=== PATIENT | male | born 1955 | race Caucasian/White ===

== ENCOUNTER 2025-03-26 08:11 | Observation (INO) ==
--- NOTE | 2025-03-03 11:24 | PAT Medication Instructions ---
Medication Instructions Date of Service March 03, 2025 Home Medications amlodipine 10 mg tablet 10 mg PO QAM aspirin 81 mg tablet,delayed release 81 mg PO QPM carvedilol 3.125 mg tablet 3.125 mg PO BID coenzyme Q10 100 mg capsule (Co Q-10) 100 mg PO DAILY empagliflozin 10 mg tablet (Jardiance) 10 mg PO QAM fenofibrate nanocrystallized 145 mg tablet 145 mg PO QAM metformin 1,000 mg tablet 1,000 mg PO BID omega 5-adu-hjl-fish oil 1,000 mg (120 mg-180 mg) capsule (Fish Oil) 1 cap PO QPM ramipril 10 mg capsule 10 mg PO BID rosuvastatin 20 mg tablet 20 mg PO HS tamsulosin 0.4 mg capsule (Flomax) 0.4 mg PO QAM vitamin B12 1,000 mcg-folic acid 400 mcg sublingual tablet 1 tab sublingual D AILY STOP 3 days before surgery empagliflozin 10 mg tablet (Jardiance) 10 mg PO QAM ASK your prescriber and surgeon aspirin 81 mg tablet,delayed release 81 mg PO QPM STOP taking 2 weeks before surgery (or as soon as possible if surgery is within 2 weeks) coenzyme Q10 100 mg capsule (Co Q-10) 100 mg PO DAILY omega 7-pht-hmo-fish oil 1,000 mg (120 mg-180 mg) capsule (Fish Oil) 1 cap PO QPM STOP taking 48 hours before surgery fenofibrate nanocrystallized 145 mg tablet 145 mg PO QAM DO NOT take the morning of surgery metformin 1,000 mg tablet 1,000 mg PO BID ramipril 10 mg capsule 10 mg PO BID vitamin B12 1,000 mcg-folic acid 400 mcg sublingual tablet 1 tab sublingual DAILY Take morning of surgery With a small sip of water, OTHERWISE NOTHING TO EAT OR DRINK AFTER MIDNIGHT: amlodipine 10 mg tablet 10 mg PO QAM carvedilol 3.125 mg tablet 3.125 mg PO BID tamsulosin 0.4 mg capsule (Flomax) 0.4 mg PO QAM Take evening before surgery carvedilol 3.125 mg tablet 3.125 mg PO BID metformin 1,000 mg tablet 1,000 mg PO BID ramipril 10 mg capsule 10 mg PO BID rosuvastatin 20 mg tablet 20 mg PO HS Other Notes If you have any questions please call us at [phone] or [phone] or [phone] or [phone]
--- NOTE | 2025-03-06 13:23 | Anesthesiology Consultation ---
Date of Service March 06, 2025 Assessment & Plan (1) Encounter for pre-operative examination: Plan - check BSG am DOS. - patient reports PCP clearance 03/22/25, Dr. Earnest Moore. - Outpatient joint assessment: Patient is currently scheduled for inpatient pathway. If re-evaluated and patient/surgeon requests outpatient pathway, patient is not ideal candidate for outpatient joint program. Chart Review Chart Review: Pending: Refer to Additional Notes / Consult section and Patient seen in Pre Admission Testing Teaching & Discussion Pre-Anesthesia Teaching/Discussion Notes: Instructed NPO after midnight before surgery, except medications with 15 cc of water. Medication instructions provided according to the PAT guidelines. History Surgery Operation Date: 03/26/25 07:15 Proposed Procedures p Right Reverse Total Shoulder Arthroplasty - Wilbur Hedrick MD Height/Weight Height: 5 ft 6 in Weight: 88.8 kg Allergies Allergy/AdvReac Type Severity Reaction Status Date / Time amoxicillin Allergy Mild Hives Verified 02/26/25 13:08 Medications Home Medications Medication Instructions Recorded Confirmed Last Taken amlodipine 10 mg tablet 10 mg PO QAM 02/26/25 02/26/25 Unknown aspirin 81 mg tablet,delayed 81 mg PO QPM 02/26/25 02/26/25 Unknown release carvedilol 3.125 mg tablet 3.125 mg PO BID 02/26/25 02/26/25 Unknown coenzyme Q10 100 mg capsule (Co 100 mg PO DAILY 02/26/25 02/26/25 Unknown Q-10) empagliflozin 10 mg tablet 10 mg PO QAM 02/26/25 02/26/25 Unknown (Jardiance) fenofibrate nanocrystallized 145 145 mg PO QAM 02/26/25 02/26/25 Unknown mg tablet metformin 1,000 mg tablet 1,000 mg PO BID 02/26/25 02/26/25 Unknown omega 5-lhc-jsp-fish oil 1,000 mg 1 cap PO QPM 02/26/25 02/26/25 Unknown (120 mg-180 mg) capsule (Fish Oil) ramipril 10 mg capsule 10 mg PO BID 02/26/25 02/26/25 Unknown rosuvastatin 20 mg tablet 20 mg PO HS 02/26/25 02/26/25 Unknown tamsulosin 0.4 mg capsule (Flomax) 0.4 mg PO QAM 02/26/25 02/26/25 Unknown vitamin B12 1,000 mcg-folic acid 1 tab sublingual DAILY 02/26/25 02/26/25 Unknown 400 mcg sublingual tablet Past Medical History Medical History (Updated 03/06/25 @ 13:34 by Angela Doan PA-C) BPH (benign prostatic hyperplasia) CAD (coronary artery disease) s/p CABG x 3 07/2008 Diabetes mellitus NIDDM HLD (hyperlipidemia) HTN (hypertension) controlled, stable per pt Hx of colonic polyps Hx of myocardial infarction (05/2009) had CABGx 3- 07/2008- no longer sees cardio Osteoarthritis Seasonal allergies Snores never had sleep study Patient denies h/o stroke, seizures, heart failure, blood clots/DVTs or blood transfusions. Exercise / Class Metabolic Activity II 4-5 Yardwork/Stairs/Walk up hill (denies chest discomfort or shortness of breath with one flight of stairs) Past Surgical History Surgical History History of coronary artery bypass graft x 3 (07/2009) [place] History of lumbar surgery (1984) herniated disc- Hx of cardiac catheterization (05/2009) [place]- had cabg x 3- 07/2008- no longer sees cardio Hx of colonoscopy with polypectomy [facility] Past Anesthesia History No Hx of Anesthesia Complications and No Family Hx of Anesthesia Complications History of PONV No Hx of PONV and No Hx of Motion Sickness Social History Smoking Status: Never smoker Do You Dip or Chew Tobacco: No Hx Alcohol Use: Yes Alcohol type: beer alcohol intake frequency: holidays/special occasions only Hx Substance Use: No substance use type: does not use Review of Systems Patient denies chest pain, shortness of breath, dyspnea on exertion, reflux, fever, chills, cough, wheezing, or palpitations. Physical Exam Vital Signs Vitals BP 125/78 P 56 TEMP 97.8 SP02 96% on RA RESP 18 Physical Patient resting comfortably in chair in no acute distress, alert and oriented, responding appropriately throughout visit Full cervical extension range of motion without pain TMD 3.5 finger breadths Mallampati Score 2 Dentition: intact, denies chipped or loose teeth, caps/crowns, implants or bridges Lungs: normal respiratory effort. Good air movement, clear throughout to auscultation, no adventitious breath sounds Cardiac: bradycardic regular rhythm, no murmurs noted Carotid arteries: negative bruit bilat Lab Results Anesthesia Preop Results Results Anesthesia Widget: WBC 4.65 K/ul (4.8-10.8) L 03/06/25 Hgb 13.4 g/dl (14.0-18.0) L 03/06/25 Hct 39.6 % (42.0-52.0) L 03/06/25 Plt 237 K/uL (130-400) 03/06/25 Na 140 mmol/L (136-145) 03/06/25 K 3.8 mmol/L (3.5-5.1) 03/06/25 Cl 106 mmol/L (98-107) 03/06/25 CO2 27 mmol/L (21-32) 03/06/25 BUN 18 mg/dl (6-23) 03/06/25 Creat 0.95 mg/dl (0.6-1.4) 03/06/25 Glucose Level 102 mg/dl (70-99(Fasting)) H 03/06/25 PT 10.9 Seconds (9.0-12.0) 03/06/25 PTT 34 Seconds (21-31) H 03/06/25 INR 1.0 (0.9-1.1) 03/06/25 HA1c 7.1 % (4.5-5.6) H 03/06/25 Urine Color Yellow 03/06/25 Urine Appearance Clear (Clear) 03/06/25 Urine pH 6.5 (4.5-7.5) 03/06/25 Urine Specific [place] 1.013 (1.000-1.030) 03/06/25 Urine Protein Negative (Negative) 03/06/25 Urine Glucose (UA) 3+ (Negative) H 03/06/25 Urine Ketones Negative (Negative) 03/06/25 Urine Blood Negative (Negative) 03/06/25 Urine Nitrite Negative (Negative) 03/06/25 Urine Bilirubin Negative (Negative) 03/06/25 Urine Urobilinogen Negative (Negative) 03/06/25 Urine Leukocyte Esterase Negative (Negative) 03/06/25 Blood Type O Positive 03/06/25 Antibody Screen NEGATIVE 03/06/25 Testing Electrocardiogram Date: 03/06/25 Sinus bradycardia, rate 56 bpm Chest X-Ray Date: 03/06/25 Cardiomegaly without acute process.
--- NOTE | 2025-03-25 19:55 | History & Physical Report ---
Date of Service March 25, 2025 Assessment & Plan (1) Traumatic complete tear of rotator cuff: Plan: Options of repair versus replacement were discussed at length and looking at risks and benefits of both procedures and patient at his age felt the best option would be to proceed with reverse shoulder replacement and biceps tenodesis of the right shoulder. Risks including potential difficulty with internal rotation behind the back, infection loosening or fracture or typical nerve or vessel injury discussed and patient wants to proceed with surgery. Encounter type: subsequent encounter Laterality: right Qualified Code(s): S46.011D - Strain of muscle(s) and tendon(s) of the rotator cuff of right shoulder, subsequent encounter (2) Biceps tendinopathy of right upper extremity: (3) Osteoarthritis of right acromioclavicular joint: (4) Tendinopathy of right rotator cuff: History of Present Illness Chief Complaint: Chronic right shoulder pain weakness Primary Care Provider: Earnest Moore MD 69-year-old male with right shoulder pain with traumatic complete tear of his right rotator cuff. Patient has large retracted rotator cuff tear with surrounding tendinopathy. Patient also has biceps tendinopathy. Patient denies headaches, sweats, fevers, chills, double vision, blurred vision, cough, sore throat, dysphagia, chest pain, sob, wheezing, n/v/d/c, numbness, tingling, fatigue, urinary symptoms, mood disorders. ROS positive for cardiac issues in the past hypertension high cholesterol diabetes obesity. Allergies Allergy/AdvReac Type Severity Reaction Status Date / Time amoxicillin Allergy Mild Hives Verified 02/26/25 13:08 Home Medications Medication Instructions Recorded Confirmed Type amlodipine 10 mg tablet 10 mg PO QAM 02/26/25 02/26/25 History aspirin 81 mg tablet,delayed 81 mg PO QPM 02/26/25 02/26/25 History release carvedilol 3.125 mg tablet 3.125 mg PO BID 02/26/25 02/26/25 History coenzyme Q10 100 mg capsule (Co 100 mg PO DAILY 02/26/25 02/26/25 History Q-10) empagliflozin 10 mg tablet 10 mg PO QAM 02/26/25 02/26/25 History (Jardiance) fenofibrate nanocrystallized 145 145 mg PO QAM 02/26/25 02/26/25 History mg tablet metformin 1,000 mg tablet 1,000 mg PO BID 02/26/25 02/26/25 History omega 1-qid-gki-fish oil 1,000 mg 1 cap PO QPM 02/26/25 02/26/25 History (120 mg-180 mg) capsule (Fish Oil) ramipril 10 mg capsule 10 mg PO BID 02/26/25 02/26/25 History rosuvastatin 20 mg tablet 20 mg PO HS 02/26/25 02/26/25 History tamsulosin 0.4 mg capsule (Flomax) 0.4 mg PO QAM 02/26/25 02/26/25 History vitamin B12 1,000 mcg-folic acid 1 tab sublingual DAILY 02/26/25 02/26/25 History 400 mcg sublingual tablet Past Med/Surg History Problem List (Updated 03/25/25 @ 19:52 by Wilbur Hedrick MD) Tendinopathy of right rotator cuff Osteoarthritis of right acromioclavicular joint Biceps tendinopathy of right upper extremity Traumatic complete tear of rotator cuff Encounter for pre-operative examination Medical History CAD (coronary artery disease) s/p CABG x 3 07/2008 Osteoarthritis Hx of myocardial infarction (05/2009) had CABGx 3- 07/2008- no longer sees cardio Seasonal allergies Snores never had sleep study Hx of colonic polyps Diabetes mellitus NIDDM BPH (benign prostatic hyperplasia) HTN (hypertension) controlled, stable per pt HLD (hyperlipidemia) Surgical History Hx of colonoscopy with polypectomy [facility] Hx of cardiac catheterization (05/2009) [place]- had cabg x 3- 07/2008- no longer sees cardio History of coronary artery bypass graft x 3 (07/2009) [place] History of lumbar surgery (1984) herniated disc- Social History Smoking Status: Never smoker Second Hand Exposure: No; Do You Dip or Chew Tobacco: No; Tobacco Cessation Education Requested by Patient: No Hx Alcohol Use: Yes Alcohol type: beer Hx Substance Use: No Preferred Language: Omani Communication Ability: Effective Prosthetic Dentist Required: No Beliefs That Will Affect Care: None Current Living Situation: Spouse Other Information That Helps Us Care for You: No Feels Safe at Home: Yes Safety Concerns: Feels Safe At This Time Assistive Devices: Glasses Review of Systems All systems reviewed & are unremarkable except as noted in HPI & below Physical Exam Constitutional: WD/WN, vitals as above Respiratory: normal respiratory effort; no respiratory distress Cardiovascular: Rate/Rhythm: regular rate and regular rhythm Musculoskeletal: Right shoulder with subacromial crepitation tenderness anterolateral acromion greater than AC joint positive Montrose's test speeds test Jackson test cross- body Neer test. Pain in impingement arc pain during internal rotation some limitation range of motion with 160 degrees flexion and abduction and internal rotation to L1 with external rotation 85 degrees and internal rotation 65 degrees. Strength is decreased with resisted strength testing and neurovascular exam is normal. Skin: no rashes, warm and dry Neurologic: normal touch/pain/proprioception Psychiatric: A+Ox3, euthymic affect Results & Data Laboratory Results MRI demonstrates very large retracted rotator cuff tear back to the level of the glenoid and a very short segment of tendon for any repair and surrounding tendinopathy with biceps tendinopathy. Teres minor atrophy. Arthritis AC joint but not bony edema so likely not pain generator. Type II acromion with chronic impingement.
[~2025-03-26 08:11] MED LIST: BUPIVACAINE 0.5 % 5 MG/1 ML PF 10ML VIAL ONE; DEXAMETHASONE SOD INJ 4 MG/ML VIAL ONE; GLYCOPYRROLATE 0.2 MG/ML VIAL ONE; LIDOCAINE 2% 2 ML VIAL/AMP(20MG/ML) INFIL ONE; MIDAZOLAM HCL 1 MG/ML 2ML VIAL ONE; ONDANSETRON INJ 2 MG/ML 2 ML VIAL ONE; PROPOFOL IV EMULSION 10 MG/ML 20 ML VIAL IV ONE; ROCURONIUM BROMIDE 10 MG/ML 5 ML VIAL IV ONE; SUGAMMADEX SODIUM 200 MG/2 ML VIAL IV ONE
[2025-03-26] MEDS: LR 60ML/HR IV SCH (08:53)
[2025-03-26] MEDS: VANCOMYCIN HCL 1,250 MG in SODIUM CHLORIDE 0.9% 250 ML IV SCH ×2 (09:05→23:03)
[2025-03-26] MEDS: LR 15ML/HR IV SCH (09:06)
[2025-03-26] MEDS: FAMOTIDINE 20 MG TAB PO SCH (09:13)
[2025-03-26] MEDS: ACETAMINOPHEN 500 MG TAB PO SCH ×2 (09:13→17:07)
[2025-03-26] MEDS: METOCLOPRAMIDE HCL 10 MG TABLET PO SCH (09:13)
[2025-03-26] MEDS: GABAPENTIN 300 MG CAP PO SCH (09:13)
[2025-03-26] MEDS: CeleBREX 200 MG CAP PO SCH (09:13)
[2025-03-26] MEDS ORDERED: HYDROmorphone INJ 1 MG/ML SYRINGE IV PRN (09:17)
[2025-03-26] MEDS ORDERED: ONDANSETRON INJ 2 MG/ML 2 ML VIAL IV PRN ×2 (09:17→15:53)
[2025-03-26] MEDS ORDERED: ATROPINE SULFATE 0.1 MG/ML 10ML SYR IV PRN (09:17)
--- NOTE | 2025-03-26 10:40 | History & Physical Bridge Note ---
Date of Service March 26, 2025 History & Physical Bridge Note I have examined the patient, reviewed the History & Physical and in the interval since the performance of the History & Physical I have noted the following changes of clinical significance: no changes noted
[2025-03-26] MEDS: TRANEXAMIC ACID 1,000 MG **IV Pre-op IV SCH (10:52)
--- NOTE | 2025-03-26 14:14 | Post Operative Brief Note ---
Immediate Post Op Note Date of Surgery March 26, 2025 Pre & Post Diagnosis Operation Date: 03/26/25 10:15 Pre-Op Diagnosis: Right Shoulder Rotator Cuff Tear and rotator cuff and biceps tendinopathy Post-Op Diagnosis: Right Shoulder Rotator Cuff Tear and rotator cuff and biceps tendinopathy I identified the patient and participated in the time-out.: Yes Procedure Operation Date: 03/26/25 10:15 Actual Procedures p Right Reverse Total Shoulder Arthroplasty(Right), biceps tenodesis- Wilbur Hedrick MD Surgeon Wilbur Hedrick MD Street Engineer None Estimated Blood Loss 200 Findings Consistent with Post-Op Diagnosis Specimens Humeral head cut Drains Hemovac Drain Anesthesia Type General Regional Complications none Disposition Disposition: Recovery Room Overlapping Procedure I was immediately available: during the entire case.
--- NOTE | 2025-03-26 14:54 | XRay Report ---
XR shoulder RT min 2V routine CLINICAL HISTORY: Post shoulder surgery COMPARISON: None FINDINGS: Right shoulder prosthesis shows no hardware complication. Postoperative drain is present. Skin cassandra are present. There is expected soft tissue gas. IMPRESSION: Unremarkable postoperative exam. ACT 112: Negative or not required by law. Electronically signed by: Claude Albarado M.D. 03/26/2025 2:53 PM
--- NOTE | 2025-03-26 15:19 | Anesthesiology Progress Note ---
Date of Service March 26, 2025 Anesthesia Post Procedure Vital Signs Vital Signs: Temp Pulse Pulse Resp BP Pulse Ox O2 Del Method 03/26/25 15:05 71 22 122/67 96 Nasal Cannula 03/26/25 14:50 75 18 120/66 96 Nasal Cannula 03/26/25 14:35 36.4 C L 72 16 121/68 98 Room Air 03/26/25 14:25 72 19 131/72 96 Oxymask 03/26/25 14:15 71 23 125/67 98 Oxymask 03/26/25 14:05 72 24 124/66 98 Oxymask 03/26/25 13:55 35.5 C L 68 13 119/62 96 Oxymask 03/26/25 08:36 36.8 C 64 20 132/76 96 Room Air O2 Flow Rate 03/26/25 15:05 2 03/26/25 14:50 2 03/26/25 14:35 0 03/26/25 14:25 4 03/26/25 14:15 6 03/26/25 14:05 6 03/26/25 13:55 8 03/26/25 08:36 Pain Intensity Right Shoulder: Pain Intensity: 1 Transfer of Care Handoff Completed per policy Notes Mental Status: alert / awake / arousable and participated in evaluation Patient Amnestic to Procedure: Yes Nausea / Vomiting: adequately controlled Pain: adequately controlled Airway Patency, RR, SpO2: stable & adequate BP & HR: stable & adequate Hydration State: stable & adequate Anesthetic Complications: no major complications apparent and Pt Satisfied with anesthetic care
[2025-03-26] MEDS ORDERED: diphenhydrAMINE Capsule 25 MG CAP PO PRN (15:53)
[2025-03-26] MEDS ORDERED: MAGNESIUM HYDROXIDE SUSP 30 ML UDC PO PRN (15:53)
[2025-03-26] MEDS ORDERED: VANCOMYCIN CONSULT ACTIVE PRN (15:53)
[2025-03-26] MEDS ORDERED: METOCLOPRAMIDE HCL INJ 5 MG/ML 2 ML VIAL IV PRN (15:53)
[2025-03-26] MEDS ORDERED: NALOXONE HCL 0.4 MG/1 ML VIAL/CARP IV PRN (15:53)
[2025-03-26] MEDS: BUPIVACAINE LIPOSOME 1.3% 133 MG/10 ML VIAL ONE (16:37)
[2025-03-26] MEDS: General Order Problem(s) SCH (16:37)
[2025-03-26] MEDS: SODIUM CHLORIDE 0.9% 1,000 ML IV SCH (17:06)
[2025-03-26] MEDS: KETOROLAC TROMETHAMINE 15 MG/ML VIAL IV SCH (17:08)
[2025-03-26 17:16] LABS: Hematocrit (blood only) 40.9 % (42.0-52.0); Hemoglobin 13.7 g/dl (14.0-18.0); Mean Corpuscular Hemoglobin 29.8 pg (25.0-34.0); Mean Corpuscular Volume 88.9 fL (80.0-100.0); Platelet Count 212 K/uL (130-400); RDW Standard Deviation 44.0 fL (36.4-46.3); Red Blood Count 4.60 M/uL (4.70-6.10); White Blood Count 11.87 K/ul (4.8-10.8)
[2025-03-26 17:32] LABS: Anion Gap 10.0 (3-11); Blood Urea Nitrogen 15.0 mg/dl (6-23); Calcium 9.1 mg/dl (8.6-10.3); Carbon Dioxide 23.0 mmol/L (21-32); Chloride 106.0 mmol/L (98-107); Creatinine Clr Calc Pharmacy 94.7 ml/min; Glucose 190.0 mg/dl (70-99(Fasting)); Potassium 3.6 mmol/L (3.5-5.1); Sodium 139.0 mmol/L (136-145)
[2025-03-26 17:53] LABS: Immature Granulocytes # (auto) 0.05 K/uL (0.01-0.20); Immature Granulocytes % (auto) 0.4 %
--- NOTE | 2025-03-26 18:04 | Operative Report ---
Post Operative Report Pre & Post Diagnosis Operation Date: 03/26/25 10:15 Pre-Op Diagnosis: Right Shoulder chronic rotator Cuff Tear and Tendinopathy rotator cuff and biceps tendon Post-Op Diagnosis: Right Shoulder chronic rotator Cuff Tear and Tendinopathy rotator cuff and biceps tendon I identified the patient and participated in the time-out.: Yes Procedure Operation Date: 03/26/25 10:15 Actual Procedures p Right Reverse Total Shoulder Arthroplasty(Right), biceps tenodesis- Wilbur Hedrick MD Surgeon Wilbur Hedrick MD Visitor Use Assistant None Estimated Blood Loss 200 Findings Consistent with Post-Op Diagnosis Specimens Humeral head Drains 2 Hemovac Anesthesia Type General Regional Complications none Disposition Disposition: Recovery Room Indications 69-year-old male with posttraumatic large supraspinatus rotator cuff tear with marked retraction and tendinopathy and tearing extending into the infraspinatus and subscapularis. Also noted is biceps tendinopathy tenosynovitis. Description of Procedure The patient was taken to the operating room and anesthetized under regional block and general anesthetic. The patient was positioned on the operating table in a 30 beach chair position with a towel roll under the medial border of the right scapula. The arm was draped free to be able to manipulate the shoulder as needed. The right upper extremity was prepped and draped in usual sterile fashion. Exam demonstrated some subacromial crepitation with full passive range of motion and no atrophy. An anterior deltopectoral approach was performed. A longitudinal incision was made in the deltopectoral interval. The skin was incised sharply. Subcutaneous flaps were elevated off the fascia. The cephalic vein was dissected out and retracted lateral with the deltoid. The clavipectoral fascia was divided at the lateral margin of the conjoined tendon and extended up to the CA ligament. The following findings were noted the subscapularis was intact. There was a large supraspinatus tear with retraction back to the glenoid. There was interstitial tearing of the infraspinatus with splitting between the undersurface and superior aspect of the infraspinatus with chronic undersurface tearing. The upper centimeter of the pectoralis was released for inferior exposure. A self-retaining retractor was placed. The biceps tendon findings demonstrated intact biceps tendon but some chronic tenosynovitis coming out of the joint down along the biceps tendon sheath. A tenosynovectomy was performed. the biceps ten don was tenodesed to the pectoralis tendon with #2 FiberWire using [id number]-[id number]-spboo/whipstitch type technique. The proximal biceps was resected. The subscapular muscle fibers were split longitudinally at the level of the circumflex vessels. The circumflex vessels were identified and tied off with silk ties and divided laterally. A Kitner elevator was used to free up the inferior fibers of the subscapularis off of the capsule. The axillary nerve was identified with a tug test and protected with a blunt Kellie retractor between the nerve and the capsule. The subscapularis tendon was then taken down off of the lesser tuberosity subperiosteally, a Vicryl traction suture was placed and a subperiosteal dissection was performed along the neck of the humerus as the arm was gradually externally rotated exposing the humeral head. The humeral head findings demonstrated intact articular surface with minimal arthritic changes. A Aguilar elevator was used to assist in releasing the capsule of the neck of the humerus. The capsule was divided with Maki scissors down to the glenoid released off the anterior glenoid and the rotator interval was released to meet the capsular release and a 360 release of the subscapularis was accomplished. A Fukuda retractor was placed into the joint retracting the humeral head posterior. Glenoid findings demonstrated intact articular surface and labrum. The labrum and biceps tendon was resected. an anterior-inferior and posterior inferior capsular release were performed with electrocautery and a Aguilar elevator on bone with the axillary nerve protected inferiorly by the retractor. Attention was then taken to the humeral preparation. The cutting guide was placed into the humeral head. It was positioned at 20 of retroversion. Oscillating saw was used to resect the humeral head giving the cut above the level of the posterior rotator cuff insertion site. The humerus was then prepared for the stem. I used the ascend flex stem from [employer]. The sizing broaches were used followed by trial broaches up to a size 4B long which had the appropriate fit and fill. The appropriate sized cut protector was placed. The humerus was then retracted posterior to the glenoid. The glenoid was sized for a 25 mm baseplate. The guide for the baseplate was positioned in a 10 inferior tilt and the central drill hole was made. The reamer for the 25 baseplate was used. The central drill was widened for the peg. The aequalis hydroxyapatite coated 25 mm standard post baseplate was impacted into position. The base plate was transfixed with superior and inferior locking screws and anterior and posterior compression screws with stable fixation. The fan reamer was used for the 36 millimeter glenoid sphere. After irrigation the 36 mm +2 glenoid sphere was impacted onto the baseplate and the security screw was tightened. Attention was taken back to the humerus. The cut protector was removed and the +0 high offset humeral tray trial was assembled to the trial stem rotated appropriately to get bony coverage and then screwed in position. A trial reduction was performed. A +6/36 reversed flex trial insert demonstrated good stability and no shuck. The trials were removed. 3 drill holes are made into the harder bone in the bicipital groove area and 3 #5 FiberWire sutures were placed transosseously. The canal was irrigated with pulsatile lavage saline solution. The final component was assembled. The final component was 4B long ascend flex stem assembled 2+0 high offset tray with a 36 mm / +6 mm flex reversed polyethylene insert. This was then impacted into the humerus with a tight press-fit. Bone was very hard and fit was tight. It was reduced to the glenoid sphere. Stability was verified. Subscapularis was repaired with the #5 FiberWire sutures using Sam-Laurent suture technique. Lateral row soft tissue repair was performed with #2 FiberWire [id number] sutures. The pectoralis was repaired with #2 FiberWire [id number] sutures reinforcing the biceps tendon tenodesis. The arm was taken through a range of motion which demonstrated 150 degrees of flexion 90 degrees abduction and 70 degrees external rotation. The implant was stable through the range of motion tested. The wound was copiously irrigated. 2 Hemovac drains were placed. The deltopectoral interval was closed with [id number] #1 Vicryl sutures. The subcutaneous tissues were closed with 2-0 Vicryl sutures. The skin was closed with surgical cassandra. A Silverlon sterile dressing and drain sponge dressing were applied and a shoulder immobilizer. . I attest to the content of the Intraoperative Record and any orders documented therein. Any exceptions are noted below.
[2025-03-26] MEDS: ASPIRIN 81 MG ECTAB PO SCH (20:35)
[2025-03-26] MEDS: ENALAPRIL MALEATE 10 MG TAB PO SCH (20:36)
[2025-03-26] MEDS: ROSUVASTATIN CALCIUM 20 MG TAB PO SCH (20:37)
[2025-03-26] MEDS: SENNA 8.6 MG TAB PO SCH (20:39)
[2025-03-26] MEDS: DOCUSATE SODIUM 100 MG CAP PO SCH (20:39)
[2025-03-26 23:06] VITALS: RESP 16
[2025-03-27] MEDS ORDERED: VANCOMYCIN HCL 1,250 MG in SODIUM CHLORIDE 0.9% 250 ML IV SCH
[2025-03-27 04:34] VITALS: TEMP 97.5
[2025-03-27 07:32] VITALS: BP 126/72; PULSE 70; O2SAT 97
[2025-03-27] MEDS: MULTIVITAMIN TAB PO SCH (08:04)
--- NOTE | 2025-03-27 08:04 | Orthopedic Progress Note ---
Date of Service March 27, 2025 Assessment & Plan (1) Traumatic complete tear of rotator cuff: Plan: Postop day 1 reverse shoulder replacement and biceps tenodesis for large retracted rotator cuff tear with associated rotator cuff tendinopathy/biceps tendinopathy. He is doing well. Patient can be discharged home today. Set up outpatient PT started this Monday or Monday next week. We will fax therapy prescription from our office. Patient already has medication with oxycodone, doxycycline that they have picked up at pharmacy. I discussed activity precautions. Patient can be discharged home today after seen by OT PT and drain discontinued. Follow-up in 2 weeks for staple removal. Options of repair versus replacement were discussed at length and looking at risks and benefits of both procedures and patient at his age felt the best option would be to proceed with reverse shoulder replacement and biceps tenodesis of the right shoulder. Risks including potential difficulty with internal rotation behind the back, infection loosening or fracture or typical nerve or vessel injury discussed and patient wants to proceed with surgery. (2) Biceps tendinopathy of right upper extremity: (3) Osteoarthritis of right acromioclavicular joint: (4) Tendinopathy of right rotator cuff: Admission and Anticipated Discharge Date Admission Date: March 26, 2025 Subjective No complaints doing well no complaints of pain Review of Systems Review of Systems: Asymptomatic, noncontributory Physical Exam Musculoskeletal: Right upper extremity sling intact and appropriate, dressing dry and intact, distal circulation sensorimotor exam intact. Biceps function intact. hand function intact. Results & Data Vital Signs (Past 12 Hours) Vital Signs Temp Pulse Resp BP BP Pulse Ox O2 Del Method 03/27/25 07:29 36.4 C L 70 16 126/72 97 Room Air 03/27/25 03:00 36.4 C L 67 16 128/68 95 Room Air 03/26/25 23:00 36.3 C L 72 16 127/73 96 Room Air Diagnostic Findings Well aligned reverse total shoulder replacement (1) Traumatic complete tear of rotator cuff Encounter type: subsequent encounter Laterality: right Qualified Code(s): S46.011D - Strain of muscle(s) and tendon(s) of the rotator cuff of right shoulder, subsequent encounter
[2025-03-27] MEDS: FENOFIBRATE NANOCRYSTALLIZED 145 MG TABLET PO SCH (08:05)
[2025-03-27] MEDS: TAMSULOSIN HCL 0.4 MG CAP PO SCH (08:05)
[2025-03-27] MEDS ORDERED: CeleBREX 200 MG CAP PO SCH (21:00)
[2025-03-28] MEDS ORDERED: LR 15ML/HR IV SCH (06:00)
== END 2025-03-27 11:26 | disposition home or self-care (01) ==
LOC: ASU 08:11 → INTOOBSV 14:11 → 3N 14:11